=== PATIENT | male | born 1945 | race Two or more races ===

== ENCOUNTER 2017-07-25 03:42 | Inpatient (IN) | payer OTHER ==
[~2017-07-25] VITALS: Ht 182.9 cm; Wt 95.3 kg
[~2017-07-25 03:42] MED LIST: ACIDO FOLICO; ACTOS30 MG PO; AVALIDE 300-12.1 TAB PO; AVAPRO300 MG; COREG CR20 MG PO; GLUCOPHAGE XR750 MG PO; GLUCOTROL10 MG PO; JANUMET 50-1,1 UDTAB; LIPITOR20 MG PO; METFORMIN HCL500 MG; NORVASC5 MG; SYMVASTATIN; TARKA 2/1801 BOTTLE PO; TRICOR145 MG; VASOTEC5 MG
[2017-07-25] MEDS ORDERED: HYDROCHLOROTHIA25 MG (04:06)
[2017-07-25] MEDS ORDERED: LEVOTHYROXINE75 MCG PO (04:06)
[2017-07-29] MEDS ORDERED: LEVAQUIN750 MG PO (15:40)
== END 2017-07-29 17:30 | disposition home or self-care (01) | DRG 727 ==
LOC: ER 03:42 → MEDI 18:35
PROC: 4A033R1 Measurement of Arterial Saturation, Peripheral, Percutaneous Approach (ICD-10-PCS; principal; 2017-07-25)
PROC: BW21ZZZ Computerized Tomography (CT Scan) of Abdomen and Pelvis (ICD-10-PCS; 2017-07-25)
PROC: BT43ZZZ Ultrasonography of Bilateral Kidneys (ICD-10-PCS; 2017-07-26)
PROC: B246ZZZ Ultrasonography of Right and Left Heart (ICD-10-PCS; 2017-07-28)
PROC: BW4GZZZ Ultrasonography of Pelvic Region (ICD-10-PCS; 2017-07-28)
DX: N41.0 Acute prostatitis (principal); A41.51 Sepsis due to Escherichia coli [E. coli]; N39.0 Urinary tract infection, site not specified; I10 Essential (primary) hypertension; E11.9 Type 2 diabetes mellitus without complications; E03.8 Other specified hypothyroidism; E78.4 Other hyperlipidemia; D69.59 Other secondary thrombocytopenia